=== PATIENT | male | born 1955 | race Hispanic/Latino ===

== ENCOUNTER 2018-07-06 20:50 | Emergency (ER) | payer MEDICARE, OTHER ==
[2018-07-06 22:47] LABS: ALT (SGPT) 28 U/L (8-55); AST (SGOT) 19 U/L (5-34); Albumin 3.9 g/dL (3.4-4.8); Alkaline Phosphatase 96 U/L (40-150); Anion Gap 14 mmol/L (10-20); BUN (Urea Nitrogen) 11 mg/dL (8.4-25.7); Bilirubin, Total 0.7 mg/dL (0.2-1.2); Calc. Creatinine Clearance 0 mL/min (70-130); Calcium 9.2 mg/dL (7.8-10.44); Carbon Dioxide 22 mmol/L (23-31); Chloride 108 mmol/L (98-107); Estimated GFR-MDRD Greater than 90; Globulin 2.9 g/dL (2.4-3.5); Glucose 102 mg/dL (80-115); Potassium 4.1 mmol/L (3.5-5.1); Protein, Total 6.8 g/dL (5.8-8.1); Sodium 140 mmol/L (136-145)
[2018-07-06 22:58] LABS: #Basophils 0.1 thou/uL (0.0-0.2); #Eosinphils 0.2 thou/uL (0.0-0.7); #Monocytes 0.4 thou/uL (0.11-0.59); #Neutrophils 2.5 thou/uL (1.40-6.50); %Eosinophils 4.1 % (0.0-10.0); %Lymphocytes 39.3 % (21.0-51.0); %Monocytes 7.5 % (0.0-10.0); %Neutrophils 48.1 % (42.0-75.0); Hemoglobin 14.8 g/dL (14.0-18.0); Mean Corpuscular HGB CONC 35.8 g/dL (32.0-36.0); Mean Corpuscular Hemoglobin 31.4 pg (27.0-31.0); Mean Corpuscular Volume 87.7 fL (78.0-98.0); Mean Platelet Volume 8.6 fL (7.4-10.4); Platelet Count 117 thou/uL (130-400); Platelet Morphology Comment Appears Decreased; RBC Distribution Width 11.9 % (11.5-14.5); Red Blood Cell (RBC) Count 4.71 mill/uL (4.70-6.10); White Blood Cell (WBC) Count 5.2 thou/uL (4.8-10.8)
--- NOTE | 2018-07-10 14:37 | EKG ---
Test Reason : Blood Pressure : / mmHG Vent. Rate : 067 BPM Atrial Rate : 067 BPM P-R Int : 144 ms QRS Dur : 080 ms QT Int : 386 ms P-R-T Axes : 029 -12 015 degrees QTc Int : 407 ms Normal sinus rhythm Normal ECG Confirmed by RENO ESCOBAR D.O. ([id number]), supervising editor news reel [email or web address] IRWIN ([email or web address]) on 07/10/2018 2:37:00 PM Referred By: Confirmed By:RENO ESCOBAR D.O.
== END 2018-07-07 00:20 | disposition home or self-care (01) ==
LOC: SCSER 20:50
DX: J11.1 Influenza due to unidentified influenza virus with other respiratory manifestations (principal); R42 Dizziness and giddiness; Z71.6 Tobacco abuse counseling; F17.210 Nicotine dependence, cigarettes, uncomplicated; E78.5 Hyperlipidemia, unspecified; Z79.899 Other long term (current) drug therapy
CPT/HCPCS: 80053; 84484; 85025; 93005; 96360; 99406

== ENCOUNTER 2020-07-30 13:01 | Outpatient (CLI) | payer MEDICARE ==
--- NOTE | 2020-07-30 13:31 | RAD ---
Exam: 5 views cervical spine HISTORY: Pain. FINDINGS: Predental space is normal. No prevertebral soft tissue swelling. Cervical spine vertebral b melissa height is maintained. No fracture. There is loss of disc space height and osteophyte formation at C5-C6, C6-C7 and C7-T1. Straightening of cervical lordosis is noted. Limited evaluation of the cer vical thoracic junction on the swimmer's view An AP view, there is multilevel facet hypertrophy. No malalignment On the open-mouth view lateral masses of C1 and C2 articulate probably. Visualized odontoid process i s intact IMPRESSION: Multilevel degenerative changes of the cervical spine which can be better interrogated wi th MRI, barring any contraindications
--- NOTE | 2020-07-30 13:32 | RAD ---
Exam:Right shoulder 3 views HISTORY: Strain and pain. COMPARISON: None FINDINGS: Mild degenerative change of the coracoclavicular joint space. No fracture or dislocation. M inimal joint spaces preserved. IMPRESSION: Degenerative changes to the acromioclavicular joint space.
--- NOTE | 2020-07-30 13:33 | RAD ---
3 views left shoulder: 07/30/2020 COMPARISON: None HISTORY: Pain, radiculopathy FINDINGS: No widening of the acromioclavicular or coracoclavicular interspace. No displaced fracture or evidence of dislocation. There is undersurface acromial osteophyte formation and there is mild degenerative change involving the left acromioclavicular joint. IMPRESSION: No acute fracture or dislocation. Degenerative change as above.
== END 2020-07-30 13:02 | disposition home or self-care (01) ==
LOC: SCSRAD 13:01
PROVIDERS: ATTEND Family Medicine
DX: S13.9XXS Sprain of joints and ligaments of unspecified parts of neck, sequela (principal); M19.011 Primary osteoarthritis, right shoulder; M19.012 Primary osteoarthritis, left shoulder; M47.812 Spondylosis without myelopathy or radiculopathy, cervical region
CPT/HCPCS: 72040

== ENCOUNTER 2020-08-21 12:06 | Emergency (ER) | payer MEDICARE ==
[2020-08-21 12:54] LABS: #Eosinphils 0.1 thou/uL (0.0-0.7); #Lymphocytes 1.5 thou/uL (1.20-3.40); #Monocytes 0.4 thou/uL (0.11-0.59); #Neutrophils 3.8 thou/uL (1.40-6.50); %Basophils 0.2 % (0.0-1.0); %Eosinophils 1.6 % (0.0-10.0); %Lymphocytes 26.2 % (21.0-51.0); %Monocytes 6.9 % (0.0-10.0); %Neutrophils 65.1 % (42.0-75.0); Hemoglobin 15.7 g/dL (14.0-18.0); Mean Corpuscular HGB CONC 34.7 g/dL (32.0-36.0); Mean Corpuscular Hemoglobin 31.6 pg (27.0-31.0); Mean Corpuscular Volume 91.2 fL (78.0-98.0); Mean Platelet Volume 7.4 fL (7.4-10.4); Platelet Count 155 thou/uL (130-400); RBC Distribution Width 12.1 % (11.5-14.5); Red Blood Cell (RBC) Count 4.98 mill/uL (4.70-6.10); White Blood Cell (WBC) Count 5.8 thou/uL (4.8-10.8)
[2020-08-21 13:27] LABS: ALT (SGPT) 24 U/L (8-55); AST (SGOT) 20 U/L (5-34); Albumin 4.1 g/dL (3.4-4.8); Alkaline Phosphatase 88 U/L (40-110); Anion Gap 15 mmol/L (10-20); BUN (Urea Nitrogen) 11 mg/dL (8.4-25.7); Bilirubin, Total 0.8 mg/dL (0.2-1.2); Calc. Creatinine Clearance 0 mL/min (70-130); Carbon Dioxide 21 mmol/L (23-31); Chloride 105 mmol/L (98-107); Globulin 3.2 g/dL (2.4-3.5); Glucose 90 mg/dL (80-115); Lipase 23 U/L (8-78); Potassium 4.1 mmol/L (3.5-5.1); Protein, Total 7.3 g/dL (5.8-8.1); Sodium 137 mmol/L (136-145)
[2020-08-21 13:38] LABS: Bilirubin Negative (Negative); Blood, Urine Negative (Negative); Clarity Clear (Clear); Glucose, Urine (Dipstick) Normal (Negative); Ketone, Urine Negative (Negative); Leukocyte Negative Leu/uL (Negative); Nitrite Negative (Negative); Protein, Urine (Dipstick) Negative (Neg-Trace); Specific Gravity, Urine 1.009 (1.002-1.036); Urobilinogen Normal mg/dL (Less than 2); pH, Urine 5.5 (5.0-9.0)
== END 2020-08-21 15:25 | disposition home or self-care (01) ==
LOC: ERS 12:06
DX: R07.81 Pleurodynia (principal); E78.5 Hyperlipidemia, unspecified; E78.00 Pure hypercholesterolemia, unspecified; M19.90 Unspecified osteoarthritis, unspecified site; F17.210 Nicotine dependence, cigarettes, uncomplicated; Z79.899 Other long term (current) drug therapy
CPT/HCPCS: 36415; 71045; 80053; 81003; 83690; 84484; 85025; 87086; 93005

== ENCOUNTER 2020-09-06 14:51 | Outpatient (CLI) | payer MEDICARE | END 2020-09-06 14:52 | disposition home or self-care (01) | LOC: BICCT 14:51 | PROVIDERS: ATTEND Family Medicine | DX: Z12.2 Encounter for screening for malignant neoplasm of respiratory organs (principal); F17.210 Nicotine dependence, cigarettes, uncomplicated; I25.10 Atherosclerotic heart disease of native coronary artery without angina pectoris | CPT/HCPCS: 71271 ==